=== PATIENT | female | born 1945 | race Caucasian/White ===

== ENCOUNTER 2021-01-27 14:54 | Outpatient (CLI) | payer MEDICARE, OTHER ==
[2021-01-27 16:15] LABS: #Eosinphils 0.1 10x3/uL (0.0-0.5); #Monocytes 0.6 10x3/uL (0.0-1.1); #Neutrophils 4.4 10x3/uL (1.5-8.4); %Basophils 0.6 % (0.0-2.0); %Eosinophils 1.4 % (0.0-6.0); %Lymphocytes 27.7 % (18.0-47.0); %Monocytes 8.5 % (0.0-10.0); %Neutrophils 61.4 % (40.0-75.0); Hemoglobin 13.1 g/dL (12.0-15.5); Mean Corpuscular HGB CONC 32.7 g/dL (32.0-36.0); Mean Corpuscular Hemoglobin 32.3 pg (27.0-33.0); Mean Platelet Volume 10.4 fl (7.4-10.4); Platelet Count 220 10x3/uL (150-450); RBC Distribution Width 12.3 % (11.5-14.5); Red Blood Cell (RBC) Count 4.05 10x6/uL (3.90-5.03); White Blood Cell (WBC) Count 7.2 10x3/uL (3.5-10.5)
[2021-01-27 16:34] LABS: Anion Gap 14 mmol/L (10-20); BUN (Urea Nitrogen) 15 mg/dL (9.8-20.1); Calc. Creatinine Clearance 0 mL/min (70-130); Calcium 9.5 mg/dL (7.8-10.44); Carbon Dioxide 26 mmol/L (23-31); Chloride 103 mmol/L (98-107); Glucose 79 mg/dL (83-110); Sodium 139 mmol/L (136-145)
[2021-01-27 16:52] LABS: Prothrombin Time 10.8 sec (9.5-12.1)
[2021-01-27 16:56] LABS: Bilirubin Neg (Negative); Blood, Urine 10 (Negative); Clarity Clear (Clear); Glucose, Urine (Dipstick) Normal (Negative); Ketone, Urine Negative (Negative); Leukocyte Negative (Negative); Nitrite Negative (Negative); Protein, Urine (Dipstick) Negative (Neg-Trace); Urobilinogen Normal mg/dL (Less than 2)
[2021-01-27 17:55] LABS: RBC/HPF 0-3 HPF (0-3); Squamous Epithelial 0-3 HPF (0-3); WBC/HPF 0-3 HPF (0-3)
[2021-01-27 17:56] LABS: Bacteria/HPF Rare-Few HPF (None Seen)
[2021-01-28 02:35] LABS: SARS-CoV-2 PCR by NAA Not Detected (NotDetected)
== END 2021-01-27 14:55 | disposition home or self-care (01) ==
LOC: LABBT 14:54
PROVIDERS: ATTEND Orthopaedic Surgery
DX: Z01.818 Encounter for other preprocedural examination (principal); M16.12 Unilateral primary osteoarthritis, left hip; Z20.822 Contact with and (suspected) exposure to COVID-19
CPT/HCPCS: 80048; 81001; 85025; 85610; 87081; 93005; U0003; U0005; 87635; 93010

== ENCOUNTER 2021-01-27 17:00 | Inpatient (IN) | payer MEDICARE ==
[2021-01-28 08:42] VITALS: BMI 23.3
[2021-01-31] MEDS ORDERED: Sodium Chloride 0.9% 100 ML ONE (05:51)
[2021-01-31] MEDS ORDERED: Tranexamic Acid 1,000 MG/10 ML VIAL ONE (05:51)
[2021-01-31] MEDS ORDERED: Vancomycin 1 GM/200 ML BAG ONE (05:51)
[2021-01-31] MEDS ORDERED: Bupivacaine 0.25% HCL 30 ML VIAL ONE (05:55)
[2021-01-31] MEDS ORDERED: Fentanyl 100 MCG/2 ML VIAL ONE ×5 (05:55→09:57)
[2021-01-31] MEDS ORDERED: Midazolam HCl 2 mg/2 ml Vial ONE (06:34)
[2021-01-31] MEDS ORDERED: Zolpidem Tartrate 5 MG TAB PO PRN ×2 (06:57→09:30)
[2021-01-31] MEDS ORDERED: Ondansetron PF 4 MG/2 ML Vial IVP PRN ×2 (06:57→09:30)
[2021-01-31] MEDS ORDERED: Promethazine HCl 25 MG/ML VIAL IM PRN ×2 (06:57→09:30)
[2021-01-31] MEDS ORDERED: diphenhydrAMINE 25 MG CAP PO PRN ×2 (06:57→09:30)
[2021-01-31] MEDS ORDERED: Acetaminophen 325 MG TAB PO PRN ×2 (06:57→06:59)
[2021-01-31] MEDS ORDERED: HYDROcodone/Acetaminophen 10/325 mg Tablet PO PRN ×2 (06:57)
[2021-01-31] MEDS ORDERED: traMADol HCl 50 MG TAB PO PRN ×3 (06:57→09:30)
[2021-01-31] MEDS ORDERED: Loratadine 10 MG TAB PO PRN (06:59)
[2021-01-31] MEDS ORDERED: Ropivacaine 0.2% HCl/PF 20 ML ONE (07:07)
[2021-01-31] MEDS ORDERED: Ondansetron HCl/PF 4 MG/2 ML Vial IVP PRN (09:14)
[2021-01-31] MEDS ORDERED: Bupivacaine 0.25% 10 ML VIAL EPIDURAL PRN (09:30)
[2021-01-31] MEDS ORDERED: Promethazine HCl 25 MG SUPP PR PRN (09:30)
[2021-01-31] MEDS ORDERED: Hydrocerin (Eucerin) Cream 120 gm Jar TOP PRN (09:30)
[2021-01-31] MEDS ORDERED: Ketorolac Tromethamine 30 MG/ML VIAL IVP PRN (09:30)
[2021-01-31] MEDS ORDERED: diphenhydrAMINE 50 MG/ML VIAL IM PRN (09:30)
[2021-01-31] MEDS ORDERED: Acetaminophen 500 MG TAB PO PRN (09:30)
[2021-01-31] MEDS ORDERED: Naloxone HCl 0.4 mg/ml Vial IV PRN (09:30)
[2021-01-31] MEDS ORDERED: diphenhydrAMINE 50 MG/ML VIAL IVP PRN (09:30)
[2021-01-31] MEDS ORDERED: Naloxone HCl 0.4 mg/ml Vial IVP PRN (09:30)
[2021-01-31] MEDS ORDERED: Ketorolac Tromethamine 30 MG/ML VIAL ONE (09:45)
[2021-01-31] MEDS ORDERED: Sodium Chloride For Inhalation 0.9% 3 ML NEB ONE (09:45)
[2021-01-31] MEDS ORDERED: Bupivacaine 0.5% 10 ML VIAL ONE (09:46)
[2021-01-31] MEDS ORDERED: ePHEDrine 50 MG/ML VIAL ONE (10:26)
[2021-01-31] MEDS ORDERED: Ondansetron PF 4 MG/2 ML Vial ONE (10:26)
[2021-01-31] MEDS ORDERED: Lidocaine 1.5% w/Epi 1:200K 30 ML VIAL (Epid Use) ONE (10:26)
[2021-01-31] MEDS ORDERED: Rocuronium Bromide 10 MG/ML (10ML VIAL) ONE (10:26)
[2021-01-31] MEDS ORDERED: Lidocaine 1% PF 5 ML VIAL ONE (10:26)
[2021-01-31] MEDS ORDERED: Glycopyrrolate 0.2 MG/ML 5 ML SYRINGE ONE (10:26)
[2021-01-31] MEDS ORDERED: PROPOFOL 200 MG/20 ML VIAL ONE (10:26)
[2021-01-31] MEDS ORDERED: Dexamethasone 20 MG/5 ML VIAL ONE (10:26)
[2021-01-31] MEDS ORDERED: PHENYLEPHRINE-NS 100 MCG/ML 10 ML SYRINGE ONE (10:26)
[2021-01-31] MEDS ORDERED: Ketorolac Tromethamine 30 MG/ML VIAL IVP SCH (14:00)
[2021-01-31] MEDS: Sodium Chloride 0.9% 1,000 ML IV SCH ×3 (16:18→23:42)
[2021-01-31] MEDS: Aspirin 81 mg Enteric Coated Tablet PO SCH ×2 (16:19→20:49)
[2021-01-31] MEDS ORDERED: CEFAZOLIN 2 GM in Premix Bag 1 BAG IVPB SCH (17:30)
[2021-01-31] MEDS ORDERED: Cepastat Lozenges 1 LOZ PO PRN (19:45)
[2021-01-31] MEDS ORDERED: Aspirin 81 mg Enteric Coated Tablet PO SCH (21:00)
[2021-01-31] MEDS: CEFAZOLIN 2 GM in Premix Bag 1 BAG IVPB SCH (23:42)
[2021-02-01] MEDS: fentaNYL Citrate/PF 500 MCG, Bupivacaine 10 ML in Sodium Chloride 0.9% 80 ML EPIDURAL SCH ×2 (01:49→17:55)
[2021-02-01] MEDS: Levothyroxine Sodium 88 MCG TAB PO SCH (06:04)
[2021-02-01] MEDS: CEFAZOLIN 2 GM in Premix Bag 1 BAG IVPB SCH (06:04)
[2021-02-01 06:26] LABS: Hemoglobin 10.7 g/dL (12.0-16.0); Mean Corpuscular HGB CONC 33.6 g/dL (32.0-36.0); Mean Corpuscular Hemoglobin 33.7 pg (27.0-31.0); Mean Platelet Volume 8.1 fL (7.4-10.4); Platelet Count 184 thou/uL (130-400); RBC Distribution Width 11.2 % (11.5-14.5); Red Blood Cell (RBC) Count 3.17 mill/uL (4.20-5.40); White Blood Cell (WBC) Count 10.5 thou/uL (4.8-10.8)
[2021-02-01] MEDS: Ferrous Gluconate 324 MG TAB PO SCH ×2 (08:50→16:12)
[2021-02-01] MEDS: Senokot S 8.6-50 MG TAB PO SCH ×2 (08:50→20:24)
[2021-02-01] MEDS: Multivitamin W/ Minerals 1 TAB PO SCH (08:50)
[2021-02-01] MEDS: Aspirin 81 mg Enteric Coated Tablet PO SCH ×2 (08:50→20:24)
[2021-02-01] MEDS: Meloxicam 15 MG TAB PO SCH (08:50)
[2021-02-01] MEDS: HYDROcodone/Acetaminophen 5/325 mg Tablet PO PRN ×2 (08:53→20:24)
[2021-02-01] MEDS: Sodium Chloride 0.9% 1,000 ML IV SCH ×2 (13:04→21:23)
[2021-02-02 05:22] LABS: Hemoglobin 10.2 g/dL (12.0-16.0); Mean Corpuscular HGB CONC 32.4 g/dL (32.0-36.0); Mean Corpuscular Hemoglobin 32.7 pg (27.0-31.0); Mean Platelet Volume 7.9 fL (7.4-10.4); Platelet Count 182 thou/uL (130-400); RBC Distribution Width 11.2 % (11.5-14.5); Red Blood Cell (RBC) Count 3.12 mill/uL (4.20-5.40); White Blood Cell (WBC) Count 10.6 thou/uL (4.8-10.8)
[2021-02-02] MEDS: Levothyroxine Sodium 88 MCG TAB PO SCH (06:06)
[2021-02-02] MEDS: Meloxicam 15 MG TAB PO SCH (08:18)
[2021-02-02] MEDS: Senokot S 8.6-50 MG TAB PO SCH ×2 (08:18→20:29)
[2021-02-02] MEDS: Ferrous Gluconate 324 MG TAB PO SCH ×2 (08:18→16:22)
[2021-02-02] MEDS: Multivitamin W/ Minerals 1 TAB PO SCH (08:18)
[2021-02-02] MEDS: Aspirin 81 mg Enteric Coated Tablet PO SCH ×2 (08:18→20:29)
[2021-02-02] MEDS: Sodium Chloride 0.9% 1,000 ML IV SCH ×2 (08:54→18:02)
[2021-02-02] MEDS: HYDROcodone/Acetaminophen 5/325 mg Tablet PO PRN ×3 (10:47→21:17)
[2021-02-03 05:08] LABS: Mean Corpuscular HGB CONC 34.2 g/dL (32.0-36.0); Mean Corpuscular Hemoglobin 34.4 pg (27.0-31.0); Mean Platelet Volume 8.2 fL (7.4-10.4); Platelet Count 188 thou/uL (130-400); RBC Distribution Width 11.1 % (11.5-14.5); Red Blood Cell (RBC) Count 2.89 mill/uL (4.20-5.40); White Blood Cell (WBC) Count 9.7 thou/uL (4.8-10.8)
[2021-02-03] MEDS: Levothyroxine Sodium 88 MCG TAB PO SCH (05:43)
[2021-02-03] MEDS: Sodium Chloride 0.9% 1,000 ML IV SCH ×2 (07:54→15:48)
[2021-02-03 08:14] LABS: Anion Gap 12 mmol/L (10-20); BUN (Urea Nitrogen) 12 mg/dL (9.8-20.1); Calc. Creatinine Clearance 68 mL/min (70-130); Calcium 8.3 mg/dL (7.8-10.44); Carbon Dioxide 26 mmol/L (23-31); Chloride 102 mmol/L (98-107); Glucose 112 mg/dL (83-110); Potassium 3.8 mmol/L (3.5-5.1); Sodium 136 mmol/L (136-145)
[2021-02-03] MEDS: Aspirin 81 mg Enteric Coated Tablet PO SCH ×2 (08:37→22:05)
[2021-02-03] MEDS: Ferrous Gluconate 324 MG TAB PO SCH ×2 (08:37→17:52)
[2021-02-03] MEDS: Multivitamin W/ Minerals 1 TAB PO SCH (08:37)
[2021-02-03] MEDS: HYDROcodone/Acetaminophen 5/325 mg Tablet PO PRN ×3 (08:37→22:08)
[2021-02-03] MEDS: Meloxicam 15 MG TAB PO SCH (08:37)
[2021-02-03] MEDS: Senokot S 8.6-50 MG TAB PO SCH ×2 (08:37→22:09)
[2021-02-04] MEDS: Sodium Chloride 0.9% 1,000 ML IV SCH ×2 (05:27→10:09)
[2021-02-04 05:30] LABS: Hemoglobin 9.8 g/dL (12.0-16.0); Mean Corpuscular HGB CONC 33.2 g/dL (32.0-36.0); Mean Corpuscular Hemoglobin 33.3 pg (27.0-31.0); Mean Platelet Volume 7.8 fL (7.4-10.4); Platelet Count 209 thou/uL (130-400); RBC Distribution Width 11.1 % (11.5-14.5); Red Blood Cell (RBC) Count 2.93 mill/uL (4.20-5.40); White Blood Cell (WBC) Count 7.9 thou/uL (4.8-10.8)
[2021-02-04] MEDS: Levothyroxine Sodium 88 MCG TAB PO SCH (05:43)
[2021-02-04] MEDS: HYDROcodone/Acetaminophen 5/325 mg Tablet PO PRN ×2 (08:38→16:03)
[2021-02-04] MEDS: Senokot S 8.6-50 MG TAB PO SCH (08:39)
[2021-02-04] MEDS: Multivitamin W/ Minerals 1 TAB PO SCH (08:39)
[2021-02-04] MEDS: Meloxicam 15 MG TAB PO SCH (08:39)
[2021-02-04] MEDS: Ferrous Gluconate 324 MG TAB PO SCH ×2 (08:40→16:04)
[2021-02-04] MEDS: Aspirin 81 mg Enteric Coated Tablet PO SCH (08:40)
[2021-02-04 18:48] VITALS: BP 118/66; TEMP 97.5
== END 2021-02-04 19:59 | disposition critical access hospital (66) | DRG 470 ==
LOC: SURG A 01-31 05:35 → SURG B 01-31 11:43 → EDSTATUS 01-31 17:00
PROVIDERS: ADMIT Orthopaedic Surgery; ATTEND Orthopaedic Surgery
PROC: 0SRB049 Replacement of Left Hip Joint with Ceramic on Polyethylene Synthetic Substitute, Cemented, Open Approach (ICD-10-PCS; principal; 2021-01-31)
DX: M16.12 Unilateral primary osteoarthritis, left hip (principal); E89.0 Postprocedural hypothyroidism; J30.2 Other seasonal allergic rhinitis; Z92.3 Personal history of irradiation; Z85.850 Personal history of malignant neoplasm of thyroid; Z87.891 Personal history of nicotine dependence; Z98.890 Other specified postprocedural states; Z79.890 Hormone replacement therapy; Z79.899 Other long term (current) drug therapy; Z96.641 Presence of right artificial hip joint
CPT/HCPCS: 36415; 80048; 85027; C1713; C1776; J0690; J1100; J1885; J2001; J2250; J2405; J2704; J2795; J3010; J3370; J3490; S0020

== ENCOUNTER 2022-07-13 18:13 | Inpatient (IN) | payer MEDICARE ==
[2022-07-13] MEDS ORDERED: Acetaminophen 325 MG TAB PO PRN (22:15)
[2022-07-13] MEDS ORDERED: Ondansetron ODT 4 MG TAB SL PRN (22:15)
[2022-07-13] MEDS ORDERED: Ondansetron PF 4 MG/2 ML Vial IVP PRN ×2 (22:15→23:52)
[2022-07-13 22:33] VITALS: BMI 23.2
[2022-07-13] MEDS ORDERED: Ondansetron ODT 4 MG TAB PO PRN (23:52)
[2022-07-13] MEDS ORDERED: HYDROcodone/Acetaminophen 5/325 mg Tablet PO PRN (23:52)
[2022-07-13] MEDS ORDERED: Bisacodyl 10 MG SUPP PR PRN (23:52)
[2022-07-13] MEDS ORDERED: Bisacodyl 5 MG TAB PO PRN (23:52)
[2022-07-13] MEDS ORDERED: Senokot S 8.6-50 MG TAB PO PRN (23:52)
[2022-07-14] MEDS: cefTRIAXone\\ROCEPHIN 2 GM in Sodium Chloride 0.9% 100 ML IVPB SCH (00:35)
[2022-07-14 00:55] LABS: Magnesium 2.1 mg/dL (1.6-2.6)
[2022-07-14 00:59] LABS: Troponin I Less than 0.010 ng/mL (< 0.028)
[2022-07-14 04:32] LABS: #Basophils 0.1 thou/uL (0.0-0.2); #Eosinphils 0.2 thou/uL (0.0-0.7); #Lymphocytes 2.6 thou/uL (1.20-3.40); #Monocytes 0.7 thou/uL (0.11-0.59); #Neutrophils 2.5 thou/uL (1.40-6.50); %Basophils 0.9 % (0.0-1.0); %Eosinophils 3.4 % (0.0-10.0); %Lymphocytes 42.8 % (21.0-51.0); %Neutrophils 40.9 % (42.0-75.0); Hemoglobin 13.5 g/dL (12.0-16.0); Mean Corpuscular HGB CONC 32.3 g/dL (32.0-36.0); Mean Corpuscular Hemoglobin 33.3 pg (27.0-31.0); Mean Platelet Volume 8.3 fL (7.4-10.4); Platelet Count 163 thou/uL (130-400); RBC Distribution Width 11.9 % (11.5-14.5); Red Blood Cell (RBC) Count 4.05 mill/uL (4.20-5.40)
[2022-07-14] MEDS: Levothyroxine Sodium 88 MCG TAB PO SCH (04:36)
[2022-07-14 04:57] LABS: Anion Gap 12 mmol/L (10-20); BUN (Urea Nitrogen) 12 mg/dL (9.8-20.1); Calc. Creatinine Clearance 62 mL/min (70-130); Calcium 8.8 mg/dL (7.8-10.44); Carbon Dioxide 26 mmol/L (23-31); Chloride 108 mmol/L (98-107); Estimated GFR 80; Glucose 87 mg/dL (83-110); Potassium 4.1 mmol/L (3.5-5.1); Sodium 142 mmol/L (136-145)
[2022-07-14] MEDS: Carbidopa/Levodopa 25-100 mg Tablet PO SCH ×2 (09:08→20:16)
[2022-07-14] MEDS: Folic Acid 1 MG TAB PO SCH ×2 (09:09→20:18)
[2022-07-14] MEDS: Cyanocobalamin (Vitamin B-12) 1,000 MCG TAB PO SCH ×2 (09:09→20:18)
[2022-07-14] MEDS: Multivit, Therapeutic 1 TAB PO SCH ×2 (09:09→20:17)
[2022-07-14] MEDS: Trihexyphenidyl 2 MG TAB PO SCH ×2 (09:10→20:18)
[2022-07-14] MEDS: Enoxaparin Sodium 30 MG/0.3 ML SYRINGE SC SCH (09:10)
[2022-07-14] MEDS: Aspirin 81 mg Enteric Coated Tablet PO SCH (20:13)
[2022-07-14] MEDS: pyridOXINE 50 MG (B6) TAB PO SCH (20:18)
[2022-07-15] MEDS: cefTRIAXone\\ROCEPHIN 2 GM in Sodium Chloride 0.9% 100 ML IVPB SCH (00:14)
[2022-07-15] MEDS: Levothyroxine Sodium 88 MCG TAB PO SCH (05:11)
[2022-07-15] MEDS: Multivit, Therapeutic 1 TAB PO SCH ×2 (09:03→20:36)
[2022-07-15] MEDS: Folic Acid 1 MG TAB PO SCH ×2 (09:03→20:35)
[2022-07-15] MEDS: Trihexyphenidyl 2 MG TAB PO SCH ×2 (09:03→20:35)
[2022-07-15] MEDS: Carbidopa/Levodopa 25-100 mg Tablet PO SCH ×2 (09:03→20:35)
[2022-07-15] MEDS: Enoxaparin Sodium 30 MG/0.3 ML SYRINGE SC SCH (09:04)
[2022-07-15] MEDS: Cyanocobalamin (Vitamin B-12) 1,000 MCG TAB PO SCH ×2 (09:04→20:37)
[2022-07-15] MEDS ORDERED: Electrolyte Replacement Protocol FS PRN (14:00)
[2022-07-15] MEDS ORDERED: Electrolyte Replacement Protocol 1 EACH FS SCH (14:00)
[2022-07-15] MEDS: Midodrine HCl 5 MG TAB PO SCH ×2 (14:47→20:36)
[2022-07-15] MEDS: Aspirin 81 mg Enteric Coated Tablet PO SCH (20:35)
[2022-07-15] MEDS: pyridOXINE 50 MG (B6) TAB PO SCH (20:36)
[2022-07-16] MEDS: cefTRIAXone\\ROCEPHIN 2 GM in Sodium Chloride 0.9% 100 ML IVPB SCH (00:04)
[2022-07-16 05:06] LABS: #Basophils 0.1 thou/uL (0.0-0.2); #Eosinphils 0.2 thou/uL (0.0-0.7); #Lymphocytes 2.4 thou/uL (1.20-3.40); #Monocytes 0.8 thou/uL (0.11-0.59); #Neutrophils 2.9 thou/uL (1.40-6.50); %Basophils 0.9 % (0.0-1.0); %Eosinophils 3.5 % (0.0-10.0); %Lymphocytes 37.7 % (21.0-51.0); %Monocytes 12.1 % (0.0-10.0); %Neutrophils 45.8 % (42.0-75.0); Hemoglobin 13.3 g/dL (12.0-16.0); Mean Corpuscular HGB CONC 33.2 g/dL (32.0-36.0); Mean Corpuscular Hemoglobin 33.6 pg (27.0-31.0); Mean Platelet Volume 8.2 fL (7.4-10.4); Platelet Count 163 thou/uL (130-400); RBC Distribution Width 11.7 % (11.5-14.5); Red Blood Cell (RBC) Count 3.96 mill/uL (4.20-5.40); White Blood Cell (WBC) Count 6.3 thou/uL (4.8-10.8)
[2022-07-16 05:26] LABS: Phosphorus 4.3 mg/dL (2.3-4.7)
[2022-07-16 05:31] LABS: Anion Gap 14 mmol/L (10-20); BUN (Urea Nitrogen) 15 mg/dL (9.8-20.1); Calc. Creatinine Clearance 63 mL/min (70-130); Calcium 8.9 mg/dL (7.8-10.44); Carbon Dioxide 23 mmol/L (23-31); Chloride 106 mmol/L (98-107); Estimated GFR 81; Glucose 88 mg/dL (83-110); Potassium 3.6 mmol/L (3.5-5.1); Sodium 139 mmol/L (136-145)
[2022-07-16] MEDS: Levothyroxine Sodium 88 MCG TAB PO SCH (05:46)
[2022-07-16] MEDS ORDERED: Magnesium 2 GM/50 ML(in water) 2 GM in Premix Bag 1 BAG IVPB SCH (08:00)
[2022-07-16] MEDS: Carbidopa/Levodopa 25-100 mg Tablet PO SCH ×2 (09:06→20:29)
[2022-07-16] MEDS: Trihexyphenidyl 2 MG TAB PO SCH ×2 (09:06→20:29)
[2022-07-16] MEDS: Midodrine HCl 5 MG TAB PO SCH ×3 (09:07→20:27)
[2022-07-16] MEDS: Enoxaparin Sodium 30 MG/0.3 ML SYRINGE SC SCH (09:07)
[2022-07-16] MEDS: Folic Acid 1 MG TAB PO SCH (20:27)
[2022-07-16] MEDS: pyridOXINE 50 MG (B6) TAB PO SCH (20:28)
[2022-07-16] MEDS: Cyanocobalamin (Vitamin B-12) 1,000 MCG TAB PO SCH (20:28)
[2022-07-16] MEDS: Multivit, Therapeutic 1 TAB PO SCH (20:28)
[2022-07-16] MEDS: Aspirin 81 mg Enteric Coated Tablet PO SCH (20:29)
[2022-07-17] MEDS: cefTRIAXone\\ROCEPHIN 2 GM in Sodium Chloride 0.9% 100 ML IVPB SCH (00:04)
[2022-07-17] MEDS: Levothyroxine Sodium 88 MCG TAB PO SCH (06:18)
[2022-07-17] MEDS: Carbidopa/Levodopa 25-100 mg Tablet PO SCH (09:21)
[2022-07-17] MEDS: Trihexyphenidyl 2 MG TAB PO SCH (09:22)
[2022-07-17] MEDS: Enoxaparin Sodium 30 MG/0.3 ML SYRINGE SC SCH (09:22)
[2022-07-17] MEDS: Midodrine HCl 5 MG TAB PO SCH ×2 (09:22→16:29)
[2022-07-17 12:36] VITALS: BP 126/58; TEMP 97.6
[2022-07-17 13:25] LABS: #Eosinphils 0.3 thou/uL (0.0-0.7); #Lymphocytes 2.2 thou/uL (1.20-3.40); #Monocytes 0.7 thou/uL (0.11-0.59); %Basophils 0.5 % (0.0-1.0); %Eosinophils 3.2 % (0.0-10.0); %Lymphocytes 27.1 % (21.0-51.0); %Monocytes 8.2 % (0.0-10.0); %Neutrophils 61.1 % (42.0-75.0); Hemoglobin 13.8 g/dL (12.0-16.0); Mean Corpuscular HGB CONC 33.1 g/dL (32.0-36.0); Mean Corpuscular Hemoglobin 33.4 pg (27.0-31.0); Mean Platelet Volume 8.5 fL (7.4-10.4); Platelet Count 180 thou/uL (130-400); RBC Distribution Width 11.7 % (11.5-14.5); Red Blood Cell (RBC) Count 4.13 mill/uL (4.20-5.40); White Blood Cell (WBC) Count 8.2 thou/uL (4.8-10.8)
[2022-07-17 13:48] LABS: Anion Gap 14 mmol/L (10-20); BUN (Urea Nitrogen) 18 mg/dL (9.8-20.1); Calc. Creatinine Clearance 53 mL/min (70-130); Calcium 8.7 mg/dL (7.8-10.44); Carbon Dioxide 23 mmol/L (23-31); Chloride 106 mmol/L (98-107); Estimated GFR 67; Glucose 123 mg/dL (83-110); Potassium 4.2 mmol/L (3.5-5.1); Sodium 139 mmol/L (136-145)
== END 2022-07-17 16:45 | disposition home or self-care (01) | DRG 312 ==
LOC: 2SW 18:13 → OBSVTOIN 07-14 15:47
PROVIDERS: ADMIT Internal Medicine; ATTEND Internal Medicine
DX: I95.1 Orthostatic hypotension (principal); N39.0 Urinary tract infection, site not specified; I47.2 Ventricular tachycardia; Z20.822 Contact with and (suspected) exposure to COVID-19; M19.90 Unspecified osteoarthritis, unspecified site; E89.0 Postprocedural hypothyroidism; Z96.642 Presence of left artificial hip joint; I48.91 Unspecified atrial fibrillation; I49.5 Sick sinus syndrome; N18.2 Chronic kidney disease, stage 2 (mild); F41.9 Anxiety disorder, unspecified; Z79.899 Other long term (current) drug therapy; Z79.82 Long term (current) use of aspirin; Z79.890 Hormone replacement therapy; Z85.850 Personal history of malignant neoplasm of thyroid; Z82.49 Family history of ischemic heart disease and other diseases of the circulatory system; Z87.891 Personal history of nicotine dependence; Z95.0 Presence of cardiac pacemaker
CPT/HCPCS: 36415; 80048; 82533; 83735; 84100; 84443; 84484; 85025; 87086; 93880; 96372; 96374; G0378; J0696; J1650; J3475; J3490; U0003; U0005

== ENCOUNTER 2023-03-26 15:16 | Outpatient (CLI) | payer MEDICARE | END 2023-03-26 15:17 | disposition home or self-care (01) | LOC: CT 15:16 | PROVIDERS: ATTEND Psychiatry & Neurology Neurology | DX: G20 Parkinson's disease (principal); I67.82 Cerebral ischemia | CPT/HCPCS: 70450 ==